=== PATIENT | female | born 1935 | race Caucasian/White ===

== ENCOUNTER 2017-09-20 08:26 | Day surgery (SDC) | payer OTHER ==
[~2017-09-20 08:26] MED LIST: AMIL5TAB4 PO; BENZ100C4 PO; CLOP75 PO; ESTR.3 PO; LOVA10TA PO; PROT40TA PO; SYNT175T PO
[2017-09-20] MEDS ORDERED: MUPIROCIN 2% OINT 1 APPLIC/GM SYR NASAL SCH (09:15)
[2017-09-20] MEDS ORDERED: CHLORHEXIDINE GLUCONATE 2 % 1 PACK (2 CLOTHS) TOPICAL SCH (09:15)
[2017-09-20] MEDS ORDERED: POVIDONE IODINE 5% (ANTISEPSIS KIT) 4 APPLICATIONS EACH NARE SCH (09:15)
[2017-09-20] MEDS ORDERED: ceFAZolin 2 GM PREMIX 50 ML IV SCH (09:15)
[2017-09-20] MEDS ORDERED: NS 1000 ML IV SCH (09:30)
[2017-09-20] MEDS ORDERED: BENZ1CAP54 PO (09:50)
[2017-09-20] MEDS ORDERED: ATOR40TA16 PO (09:50)
[2017-09-20] MEDS ORDERED: GLUC100013 PO (09:50)
[2017-09-20] MEDS ORDERED: ISOS30TA3 PO (09:50)
[2017-09-20] MEDS ORDERED: ASPI-516 PO (09:50)
[2017-09-20] MEDS ORDERED: LEVO.1 PO (09:50)
[2017-09-20] MEDS ORDERED: NITR0.4S SL (09:50)
[2017-09-20] MEDS ORDERED: METO25TA3 PO (09:50)
--- NOTE | 2017-09-20 10:55 | MA ---
cc: Mao Cruz MD DATE: 09/20/2017 PROCEDURE PERFORMED: Loop recorder insertion. INDICATION: Syncope. DESCRIPTION OF PROCEDURE: The patient was brought to the DOC unit in the postabsorptive state. After informed consent was obtained, a [employer] loop recorder was inserted subcutaneously in the left chest. The patient tolerated the procedure well without any apparent complications. Tachybrady pause and atrial fibrillation detection was enabled. The serial number was [id number]. The initial R-wave was 0.22 millivolts. Mao Cruz MD THERESA/VANESSA , 10:20 AM , 10:53 AM
== END 2017-09-20 11:28 | disposition home or self-care (01) ==
LOC: HDOC 08:26 → HDIC 08:27 → HDOC 11:28
PROVIDERS: ATTEND Nuclear Medicine Nuclear Cardiology
DX: R55 Syncope and collapse (principal)
CPT/HCPCS: 33282; C1764; J0690